=== PATIENT | female | born 1935 | race Caucasian/White ===

== ENCOUNTER 2016-09-13 12:14 | Emergency (ER) | payer MEDICARE ==
[~2016-09-13 12:14] MED LIST: AMIT25TA PO; AMLO10TA2 PO; ASPI81TA2 PO; CA C1TAB38 PO; CLON0.2T PO; COLE1TAB2 PO; GABA-585 PO; INSU100C4 SQ; LEVO75TA5 PO; LISI10TA2 PO; METF10002 PO; METO100T11 PO; NPH,100I SQ; PRAV10TA2 PO; TRAM50TA PO
--- NOTE | 2016-09-13 14:43 | RAD ---
Right tibia and fibula, 2 views, 09/13/2016: History: Hip and lower leg pain No fracture or destructive bony lesion is seen. There is minimal spurring at the knee joint. Arterial calcifications are evident. IMPRESSION: No acute abnormality is detected.
--- NOTE | 2016-09-13 14:44 | RAD ---
Pelvis with right hip, 3 views, 09/13/2016: History: Hip and lower leg pain No fracture or dislocation is identified. The hip joint spaces are minimally narrowed with mild marginal spurring. Mild degenerative changes are present in the lower lumbar spine. Scattered arterial calcifications are evident. IMPRESSION: No acute pelvic or right hip abnormality is detected.
[2016-09-13] MEDS ORDERED: HYDR-971 PO (15:08)
--- NOTE | 2016-09-13 15:14 | PHYS DOC ---
Past Medical History Past Medical History: Diabetes-Type II, High Cholesterol, Hypertension, Hypotension Past Surgical History: Cholecystectomy Alcohol Use: None Drug Use: None Adult General Chief Complaint Chief Complaint: LOWER EXT PAIN HPI HPI Patient is a 80 year old female who presents with complaint of right lower extremity pain. Patient states that she has been having pain from the lower portion of her knee down to her ankle for the past 4 days. Patient states that the pain stays in the front over her [place] bone. Patient denies any swelling to the right lower extremity or pain in her calf. Patient states that the pain has been getting progressively worse with weightbearing. Patient states that at her baseline she does not use a cane or walker, however she has had use a cane due to the pain over the past 2 days. Patient denies any recent injuries. Patient rates her pain currently as 9 out of 10 with weightbearing and 3 out of 10 with rest. Patient has been taking Tylenol at home with minimal relief in symptoms. Review of Systems Review of Systems Constitutional: Denies fever or chills [] Eyes: Denies change in visual acuity, redness, or eye pain [] HENT: Denies nasal congestion or sore throat [] Respiratory: Denies cough or shortness of breath [] Cardiovascular: No additional information not addressed in HPI [] GI: Denies abdominal pain, nausea, vomiting, bloody stools or diarrhea [] : Denies dysuria or hematuria [] Musculoskeletal: Right lower leg pain [] Integument: Denies rash or skin lesions [] Neurologic: Denies headache, focal weakness or sensory changes [] Endocrine: Denies polyuria or polydipsia [] Allergies Allergies Allergies Coded Allergies Type Severity Reaction Last Updated Verified Penicillins Allergy Unknown 12/08/13 Yes Physical Exam Physical Exam Constitutional: Well developed, well nourished, no acute distress, non-toxic appearance. [] HENT: Normocephalic, atraumatic, bilateral external ears normal, oropharynx moist, no oral exudates, nose normal. [] Eyes: PERRLA, EOMI, conjunctiva normal, no discharge. [] Neck: Normal range of motion, no tenderness, supple, no stridor. [] Cardiovascular:Heart rate regular rhythm, no murmur [] Lungs & Thorax: Bilateral breath sounds clear to auscultation [] Abdomen: Bowel sounds normal, soft, no tenderness, no masses, no pulsatile masses. [] Skin: Warm, dry, no erythema, no rash. [] Back: No tenderness, no CVA tenderness. [] Extremities: Right anterior tibial plateau tenderness to palpation, mid tibial tenderness to palpation, right greater trochanter tenderness to palpation, no cyanosis, no clubbing, ROM intact, no edema. [] Neurologic: Alert and oriented X 3, normal motor function, normal sensory function, no focal deficits noted. [] Current Patient Data Vital Signs Vital Signs Date Time Temp Pulse Resp B/P Pulse Ox O2 Delivery O2 Flow Rate FiO2 09/13/16 13:06 97.7 78 18 96 Room Air 97.7 EKG EKG Not performed [] Radiology/Procedures Radiology/Procedures [place] [id number] IMAGING REPORT Signed PATIENT: YANDEL PEREZ ACCOUNT: [id number] : 1935 LOCATION: ER AGE: 80 SEX: F EXAM STATUS: REG ER ORD. PHYSICIAN: FAY BASURTO MD REASON: right hip and right lower leg pain since last monday, no known injury PROCEDURE: TIBIA FIBULA RIGHT Right tibia and fibula, 2 views, 09/13/2016: History: Hip and lower leg pain No fracture or destructive bony lesion is seen. There is minimal spurring at the knee joint. Arterial calcifications are evident. IMPRESSION: No acute abnormality is detected. DICTATED and SIGNED BY: ANA LUISA ALFONSO MD DATE: 09/13/16 1440 CC: SUDHIR GUILLEN; FAY BASURTO MD ~ [address] [address] IMAGING REPORT Signed PATIENT: YANDEL PEREZ ACCOUNT: [id number] : 1935 LOCATION: ER AGE: 80 SEX: F EXAM STATUS: REG ER ORD. PHYSICIAN: FAY BASURTO MD REASON: right hip and right lower leg pain since last monday, no known injury PROCEDURE: HIP RIGHT 2V WITH PELVIS Pelvis with right hip, 3 views, 09/13/2016: History: Hip and lower leg pain No fracture or dislocation is identified. The hip joint spaces are minimally narrowed with mild marginal spurring. Mild degenerative changes are present in the lower lumbar spine. Scattered arterial calcifications are evident. IMPRESSION: No acute pelvic or right hip abnormality is detected. DICTATED and SIGNED BY: ANA LUISA ALFONSO MD DATE: 09/13/16 1442 CC: SUDHIR GUILLEN; FAY BASURTO MD ~ [] Course & Med Decision Making Course & Med Decision Making Pertinent Labs and Imaging studies reviewed. (See chart for details) Patient's x-rays were negative for fracture. The patient may still have either a bony contusion or possibly a stress fracture that is unseen on the x-rays. At this time I recommended limited weightbearing to the affected extremity and use of roller walker cane to assist with ambulation. The patient was provided with a prescription for hydrocodone to help with pain. I advised follow-up in 5-7 days a primary doctor and return to the emergency department for any worsening symptoms. Patient voiced understanding and in agreement with treatment plan. Dragon Disclaimer Dragon Disclaimer This electronic medical record was generated, in whole or in part, using a voice recognition dictation system. Departure Departure Impression: Primary Impression: Pain of right lower extremity Disposition: HOME, SELF-CARE Condition: IMPROVED Referrals: SUDHIR GUILLEN (PCP) Patient Instructions: Musculoskeletal Pain Additional Instructions: Follow-up with your primary doctor in the next 5-7 days. Limit weightbearing and walking on your right leg to necessary activities such as using the restroom , dressing herself, or making food. Return to the emergency department for any worsening symptoms. Scripts Hydrocodone/Apap 5-325 ([place] 5-325 Tablet)1 Each Tablet1 Tab PO Q4-6HRS PRN PAIN #20 TAB Prov:FAY BASURTO MD 09/13/16 FAY BASURTO MD Sep 13, 2016 15:14
[2016-09-13 15:21] VITALS: BP 147/68
[2016-09-13] MEDS ORDERED: HYDROCODONE/APAP 5/325MG TABLET. PO ONE (15:30)
== END 2016-09-13 15:55 | disposition home or self-care (01) ==
LOC: ER 12:14
DX: M79.604 Pain in right leg (principal); E11.9 Type 2 diabetes mellitus without complications; I10 Essential (primary) hypertension; E78.00 Pure hypercholesterolemia, unspecified; I95.9 Hypotension, unspecified; Z88.0 Allergy status to penicillin
CPT/HCPCS: 73502; 73590; 99284

== ENCOUNTER → 2016-10-03 | Outpatient (CLI) | payer MEDICARE ==
[2016-09-13 15:21] VITALS: BP 147/68
[~2016-10-03] MED LIST changes: +HYDR-971 PO
--- NOTE | 2016-10-03 12:08 | KCIC ---
PROCEDURE MR of the right knee HISTORY Acute right knee pain. Pain is anterior and extends down the leg. COMPARISON None TECHNIQUE Standard noncontrast images are obtained. FINDINGS No evidence of a medial meniscal tear. There is some signal at the anterior horn of the lateral meniscus, with surface violation compatible with a small tear. The anterior and posterior cruciate ligaments are intact. Medial collateral ligament is intact. Iliotibial band unremarkable. Fibular collateral ligament, biceps femoris tendon and popliteus tendon are intact. The extensor mechanism is intact. Small joint effusion. No evidence of an osteochondral loose body. Small joint effusion. At least moderate chondromalacia of the medial and lateral joint compartments. There is a subchondral osteophyte of the weight-bearing lateral femoral condyle Severe chondromalacia patellofemoral joint. No bone lesion. No acute fracture. Tiny Mejia cyst. IMPRESSION 1. Tear of the anterior horn of the lateral meniscus. 2. Severe primary osteoarthritis. Electronically signed by: Riley Feliz MD (Oct 03, 2016 12:07:28)
== END | disposition home or self-care (01) ==
LOC: KCIC MRI 08:09
PROVIDERS: ATTEND Physician Assistant Surgical
DX: S83.281A Other tear of lateral meniscus, current injury, right knee, initial encounter (principal); M17.11 Unilateral primary osteoarthritis, right knee; M94.261 Chondromalacia, right knee; M25.761 Osteophyte, right knee; M25.461 Effusion, right knee; X58.XXXA Exposure to other specified factors, initial encounter; Y93.89 Activity, other specified; Y92.89 Other specified places as the place of occurrence of the external cause; Y99.8 Other external cause status
CPT/HCPCS: 73721

== ENCOUNTER → 2016-12-07 | Outpatient (CLI) | payer MEDICARE ==
--- NOTE | 2016-12-07 13:03 | RAD ---
DATE: 12/07/2016 EXAM: DIGITAL SCREEN BILAT W/CAD HISTORY: Routine screening COMPARISON: 11/10/2015 This study was interpreted with the benefit of Computerized Aided Detection (CAD). FINDINGS: There are scattered fibroglandular densities in both breasts. No new or enlarging breast densities are seen. Numerous benign type calcifications are again noted. No suspicious microcalcifications have developed. IMPRESSION: Stable mammograms without evidence of malignancy. BI-RADS CATEGORY: 2 BENIGN FINDING(S) RECOMMENDED FOLLOW-UP: 12M 12 MONTH FOLLOW-UP PQRS compliance statement: Patient information was entered into a reminder system with a target due date for the next mammogram. Mammography is a sensitive method for finding small breast cancers, but it does not detect them all and is not a substitute for careful clinical examination. A negative mammogram does not negate a clinically suspicious finding and should not result in delay in biopsying a clinically suspicious abnormality. "Our facility is accredited by the [employer] Mammography Program."
== END | disposition home or self-care (01) ==
LOC: MAMMO 10:36
PROVIDERS: ATTEND Family Medicine
DX: Z12.31 Encounter for screening mammogram for malignant neoplasm of breast (principal)
CPT/HCPCS: G0202; 77067

== ENCOUNTER 2017-03-30 21:22 | Observation (INO) | payer MEDICARE ==
[~2017-03-30] VITALS: Ht 154.9 cm; Wt 65.8 kg
[~2017-03-30 21:22] MED LIST changes: +ASPI-630 PO; -ASPI81TA2 PO; +METF-620 PO; -METF10002 PO
--- NOTE | 2017-03-30 21:24 | PHYS DOC ---
Past Medical History Past Medical History: Diabetes-Type II, High Cholesterol, Hypertension, Hypotension Past Surgical History: Cholecystectomy Alcohol Use: None Drug Use: None Adult General Chief Complaint Chief Complaint: CHEST PAIN HPI HPI Patient is a 81 year old female who presents with substernal chest pain that radiates her back. She states that she was just sitting watching arose game when he came on Lasix for approximately 2 hours she did take some Tums and the pain resolved. She denies any shortness of breath nausea or diaphoresis associated with this. She states she's had this happen before but is been several months ago. She is usually followed by Dr. Olguin states she has had a stress test but is been more than 3 years ago. She currently is pain- free. She does take a baby aspirin daily. She has a family history of heart disease were all of her brothers have had heart attacks. She denies any history of smoking. She does have a history of hypertension dyslipidemia and diabetes. Review of Systems Review of Systems Constitutional: Denies fever or chills [] Eyes: Denies change in visual acuity, redness, or eye pain [] HENT: Denies nasal congestion or sore throat [] Respiratory: Denies cough or shortness of breath [] Cardiovascular: No additional information not addressed in HPI [] GI: Denies abdominal pain, nausea, vomiting, bloody stools or diarrhea [] : Denies dysuria or hematuria [] Musculoskeletal: Denies back pain or joint pain [] Integument: Denies rash or skin lesions [] Neurologic: Denies headache, focal weakness or sensory changes [] Endocrine: Denies polyuria or polydipsia [] Current Medications Current Medications Current Medications Medications (Trade) Dose Ordered Sig/[facility] Start Time Stop Time Status Last Admin Dose Admin Aspirin (Children'S Aspirin) 324 mg 1X ONCE 03/30/17 22:00 03/30/17 22:01 DC 03/30/17 21:46 324 MG Allergies Allergies Allergies Coded Allergies Type Severity Reaction Last Updated Verified Penicillins Allergy Intermediate 09/13/16 Yes Physical Exam Physical Exam Constitutional: Well developed, well nourished, no acute distress, non-toxic appearance. [] HENT: Normocephalic, atraumatic, bilateral external ears normal, oropharynx moist, no oral exudates, nose normal. [] Eyes: PERRLA, EOMI, conjunctiva normal, no discharge. [] Neck: Normal range of motion, no tenderness, supple, no stridor. [] Cardiovascular:Heart rate regular rhythm, no murmur [] Lungs & Thorax: Bilateral breath sounds clear to auscultation [] Abdomen: Bowel sounds normal, soft, no tenderness, no masses, no pulsatile masses. [] Skin: Warm, dry, no erythema, no rash. [] Back: No tenderness, no CVA tenderness. [] Extremities: No tenderness, no cyanosis, no clubbing, ROM intact, no edema. [] Neurologic: Alert and oriented X 3, normal motor function, normal sensory function, no focal deficits noted. [] Psychologic: Affect normal, judgement normal, mood normal. [] Current Patient Data Vital Signs Vital Signs Date Time Temp Pulse Resp B/P (MAP) Pulse Ox O2 Delivery O2 Flow Rate FiO2 03/30/17 21:28 97.6 63 20 186/81 (116) 96 Room Air 97.6 Lab Values Laboratory Tests Test 03/30/17 21:35 White Blood Count 10.2 x10^3/uL (4.0-11.0) Red Blood Count 4.14 x10^6/uL (3.50-5.40) Hemoglobin 10.5 g/dL (12.0-15.5) L Hematocrit 33.5 % (36.0-47.0) L Mean Corpuscular Volume 81 fL (79-100) Mean Corpuscular Hemoglobin 25 pg (25-35) Mean Corpuscular Hemoglobin Concent 31 g/dL (31-37) Red Cell Distribution Width 20.6 % (11.5-14.5) H Platelet Count 269 x10^3/uL (140-400) Neutrophils (%) (Auto) 52 % (31-73) Lymphocytes (%) (Auto) 32 % (24-48) Monocytes (%) (Auto) 11 % (0-9) H Eosinophils (%) (Auto) 4 % (0-3) H Basophils (%) (Auto) 1 % (0-3) Neutrophils # (Auto) 5.3 x10^3uL (1.8-7.7) Lymphocytes # (Auto) 3.3 x10^3/uL (1.0-4.8) Monocytes # (Auto) 1.1 x10^3/uL (0.0-1.1) Eosinophils # (Auto) 0.4 x10^3/uL (0.0-0.7) Basophils # (Auto) 0.1 x10^3/uL (0.0-0.2) Platelet Estimate Adequate (ADEQUATE) Poikilocytosis Slight Anisocytosis Slight Microcytosis Macrocytosis Ovalocytes Occ Prothrombin Time 12.6 SEC (11.7-14.0) Prothrombin Time INR 1.0 (0.8-1.1) Sodium Level 140 mmol/L (136-145) Potassium Level 4.7 mmol/L (3.5-5.1) Chloride Level 103 mmol/L (98-107) Carbon Dioxide Level 25 mmol/L (21-32) Anion Gap 12 (6-14) Blood Urea Nitrogen 40 mg/dL (7-20) H Creatinine 1.8 mg/dL (0.6-1.0) H Estimated GFR (Cockcroft-Gault) 27.0 Glucose Level 202 mg/dL (70-99) H Calcium Level 9.4 mg/dL (8.5-10.1) Magnesium Level 2.4 mg/dL (1.8-2.4) Total Bilirubin 0.2 mg/dL (0.2-1.0) Direct Bilirubin 0.1 mg/dL (0.0-0.2) Aspartate Amino Transferase (AST) 119 U/L (15-37) H Alanine Aminotransferase (ALT) 47 U/L (14-59) Alkaline Phosphatase 140 U/L (46-116) H Creatine Kinase 95 U/L (26-192) Creatine Kinase MB (Mass) 0.7 ng/mL (0.0-3.6) Creatine Kinase MB Relative Index 0.7 % (0-4) Troponin I Quantitative < 0.017 ng/mL (0.000-0.055) DY-Yps-F-Type Natriuretic Peptide 608 pg/mL (0-449) H Total Protein 8.2 g/dL (6.4-8.2) Albumin 3.5 g/dL (3.4-5.0) Lipase 251 U/L (73-393) Thyroid Stimulating Hormone (TSH) 0.392 uIU/mL (0.358-3.74) Laboratory Tests 03/30/17 21:35 Laboratory Tests 03/30/17 21:35 EKG EKG EKG shows sinus rhythm rate of [address] elevations, T-wave inversions noted in leads 3, left axis deviation, QTC 417 ms, as interpreted by me. Radiology/Procedures Radiology/Procedures View chest x-ray did not show any focal consolidations, bony abnormalities, pneumothorax, as interpreted by me. Impressions: Chest pain Dyslipidemia Diabetes Hypertension Course & Med Decision Making Course & Med Decision Making Pertinent Labs and Imaging studies reviewed. (See chart for details) EKG is nonacute, chest x-ray initial troponins are nonacute. I do not have any old labs to tell if her hemoglobin 10.5 and her creatinine 1.8 are her baseline or not. She's gotten pain currently. She is received a full dose aspirin. We'll admit to Dr. Adams, I spoke with Dr. Ba regarding admission. Patient's agreeable plans in stable condition this time with interim orders written and I did place a cardiology consultation with Dr. Wadsworth, however did not call or speak with him. Dragon Disclaimer Dragon Disclaimer This electronic medical record was generated, in whole or in part, using a voice recognition dictation system. Departure Departure Impression: Primary Impression: Chest pain Disposition: ADMITTED INPATIENT Admitting Physician: Romina Adams Condition: STABLE Referrals: SUDHIR GUILLEN (PCP) Problem Qualifiers Primary Impression: Chest pain Chest pain type: unspecified Qualified Codes: R07.9 - Chest pain, unspecified LASHONDA CORONA MD Mar 30, 2017 21:24
[2017-03-30 21:46] LABS: BASO # 0.1 x10^3/uL (0.0-0.2); BASO % 1 % (0-3); EOS % 4 % (0-3); HEMATOCRIT 33.5 % (36.0-47.0); HEMOGLOBIN 10.5 g/dL (12.0-15.5); LYMPH # 3.3 x10^3/uL (1.0-4.8); LYMPH % 32 % (24-48); MEAN CORPUSCULAR HEMOGLOBIN 25 pg (25-35); MEAN CORPUSCULAR HGB CONC 31 g/dL (31-37); MEAN CORPUSCULAR VOLUME 81 fL (79-100); MONO % 11 % (0-9); NEUT % 52 % (31-73); PLATELET COUNT 269 x10^3/uL (140-400); RED BLOOD COUNT 4.14 x10^6/uL (3.50-5.40); RED CELL DISTRIBUTION WIDTH 20.6 % (11.5-14.5); WHITE BLOOD COUNT 10.2 x10^3/uL (4.0-11.0)
[2017-03-30 21:55] LABS: PROTHROMBIN TIME PATIENT 12.6 SEC (11.7-14.0)
[2017-03-30 21:56] LABS: CALCIUM 9.4 mg/dL (8.5-10.1); CREATININE 1.8 mg/dL (0.6-1.0); POTASSIUM 4.7 mmol/L (3.5-5.1)
[2017-03-30] MEDS ORDERED: ASPIRIN CHEWABLE 81 MG TABLET. PO ONE (22:00)
[2017-03-30 22:01] LABS: ALBUMIN 3.5 g/dL (3.4-5.0); DIRECT BILIRUBIN 0.1 mg/dL (0.0-0.2); MAGNESIUM 2.4 mg/dL (1.8-2.4); TOTAL BILIRUBIN 0.2 mg/dL (0.2-1.0); TOTAL PROTEIN 8.2 g/dL (6.4-8.2)
[2017-03-30 22:09] LABS: BILIRUBIN,URINE NEGATIVE (NEG); GLUCOSE,URINE NEGATIVE (NEG); NITRITE,URINE NEGATIVE (NEG); PROTEIN,URINE NEGATIVE (NEG-TRACE); UROBILINOGEN,URINE 0.2 mg/dL (0.2 mg/dL)
[2017-03-30 22:16] LABS: CKMB MASS 0.7 ng/mL (0.0-3.6)
[2017-03-30 22:17] LABS: ANISOCYTOSIS SLIGHT; OVALOCYTES OCC; PLT ESTIMATE ADEQUATE (ADEQUATE); POIKILOCYTOSIS SLIGHT
[2017-03-30] MEDS ORDERED: MORPHINE SULFATE 2 MG/ML DISP.SYRIN. IV PRN (22:30)
[2017-03-30] MEDS ORDERED: ONDANSETRON PF 4 MG/2 ML VIAL. IV PRN (22:30)
[2017-03-30] MEDS ORDERED: NITROGLYCERIN SUBLINGUAL 0.4 MG BOTTLE OF 25. SL PRN (22:30)
[2017-03-30 22:32] LABS: BACTERIA,URINE FEW /HPF (0-FEW); RBC,URINE 0 /HPF (0-2); SQUAMOUS EPITHELIAL CELL,UR FEW /LPF
[2017-03-30 23:41] VITALS: BP 170/64
[2017-03-31 03:09] VITALS: BP 139/66
[2017-03-31 04:52] LABS: BASO # 0.1 x10^3/uL (0.0-0.2); BASO % 1 % (0-3); EOS % 5 % (0-3); HEMOGLOBIN 9.1 g/dL (12.0-15.5); LYMPH # 2.6 x10^3/uL (1.0-4.8); LYMPH % 29 % (24-48); MEAN CORPUSCULAR HEMOGLOBIN 25 pg (25-35); MEAN CORPUSCULAR HGB CONC 32 g/dL (31-37); MEAN CORPUSCULAR VOLUME 81 fL (79-100); MONO % 11 % (0-9); NEUT % 54 % (31-73); PLATELET COUNT 237 x10^3/uL (140-400); RED CELL DISTRIBUTION WIDTH 20.1 % (11.5-14.5); WHITE BLOOD COUNT 8.8 x10^3/uL (4.0-11.0)
--- NOTE | 2017-03-31 04:53 | EKG ---
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
[2017-03-31 05:37] LABS: CREATININE 1.6 mg/dL (0.6-1.0); GFR 30.9
[2017-03-31 07:00] VITALS: BP 165/67
--- NOTE | 2017-03-31 08:32 | RAD ---
Indication chest pain. A single view of the chest was obtained and is compared to an examination 08/31/2009. Mild cardiomegaly is noted. There is no congestive heart failure. There is no focal infiltrate. Significant pleural fluid is not seen. There is no pneumothorax. There has not, overall, been a substantial change when compared to the previous exam. IMPRESSION: Stable mild cardiomegaly. No acute finding. No significant change
[2017-03-31] MEDS ORDERED: DEXTROSE 50% 25 GM / 50ML DISP.SYRIN. IV PRN (09:30)
[2017-03-31] MEDS ORDERED: traMADol 50 MG TABLET PO PRN (09:30)
[2017-03-31] MEDS ORDERED: HYDROcodone/APAP 5/325MG 1 TAB TABLET PO PRN (09:30)
--- NOTE | 2017-03-31 09:31 | PDOC2 ---
CARDIAC CONSULT DATE OF CONSULT Date of Consult DATE: 03/31/17 TIME: 09:27 REASON FOR CONSULT Reason for Consult: Chest pain REFERRING PHYSICIAN Referring Physician: Dr. Mathew SOURCE Source: Chart review, Patient HISTORY OF PRESENT ILLNESS HISTORY OF PRESENT ILLNESS This is an 81 yo female who presented with complaints of chest pain. Patient reports she was sitting relaxing in her recliner yesterday afternoon and developed pain in her lower chest/mid-epigastric region. Describes as stabbing in nature. Radiated under bilateral breast. Associated with pain across he central back. Worsened with deep breath. Took Tums with improvement. Pain last approximately 1.5 hrs and resolved prior to arrival to ED. Denies any associated dizziness, palpitations, diaphoresis, SOA, CHAIDEZ, or nausea/vomiting. Does have a history of hypertension and hyperlipidemia. Follows with Dr. Olguin with [facility]. Last stress test or echo over 2 years ago. Reports compliance with medications. PAST MEDICAL HISTORY Cardiovascular: HTN, Hyperlipidemia Pulmonary: No pertinent hx CENTRAL NERVOUS SYSTEM: Other (no pertinent hx) GI: GERD Heme/Onc: No pertinent hx Hepatobiliary: No pertinent hx Psych: No pertinent hx Musculoskeletal: Osteoarthritis Rheumatologic: No pertinent hx Infectious disease: No pertinent hx ENT: No pertinent hx Renal/: Chronic renal insuff Endocrine: Diabetes Dermatology: No pertinent hx PAST SURGICAL HISTORY Past Surgical History: Cholecystectomy FAMILY HISTORY Family History: Coronary Artery Disease (brothers ), Diabetes (mother ) SOCIAL HISTORY Smoke: No ALCOHOL: none Lives: with Family CURRENT MEDICATIONS CURRENT MEDICATIONS Current Medications Medications (Trade) Dose Ordered Sig/Stephen Route PRN Reason Start Time Stop Time Status Last Admin Dose Admin Aspirin (Children'S Aspirin) 324 mg 1X ONCE PO 03/30/17 22:00 03/30/17 22:01 DC 03/30/17 21:46 ALLERGIES ALLERGIES: Coded Allergies: Penicillins (Verified Allergy, Intermediate, 09/13/16) ROS Review of System 14 point ROS conducted with pertinent positives noted above in HPI. PHYSICAL EXAM General: Alert, Oriented X3, Cooperative, No acute distress HEENT: Atraumatic, Mucous membr. moist/pink Lungs: Clear to auscultation, Normal air movement Heart: Regular rate, Normal S1, Normal S2, No murmurs Abdomen: Soft, No tenderness Extremities: Other (trace edema of RLE) Skin: No breakdown, No significant lesion Neuro: Normal speech, Sensation intact Psych/Mental Status: Mental status NL, Mood NL MUSCULOSKELETAL: Osteoarthritic changes both hands VITALS VITALS Vital Signs Date Time Temp Pulse Resp B/P (MAP) Pulse Ox O2 Delivery O2 Flow Rate FiO2 03/31/17 07:00 98.2 64 18 165/67 (99) 98 Room Air 98.2 LABS Lab: Laboratory Tests Test 03/30/17 21:35 03/30/17 22:00 03/31/17 04:35 03/31/17 07:16 White Blood Count 10.2 x10^3/uL (4.0-11.0) 8.8 x10^3/uL (4.0-11.0) Red Blood Count 4.14 x10^6/uL (3.50-5.40) 3.60 x10^6/uL (3.50-5.40) Hemoglobin 10.5 g/dL (12.0-15.5) 9.1 g/dL (12.0-15.5) Hematocrit 33.5 % (36.0-47.0) 29.0 % (36.0-47.0) Mean Corpuscular Volume 81 fL (79-100) 81 fL (79-100) Mean Corpuscular Hemoglobin 25 pg (25-35) 25 pg (25-35) Mean Corpuscular Hemoglobin Concent 31 g/dL (31-37) 32 g/dL (31-37) Red Cell Distribution Width 20.6 % (11.5-14.5) 20.1 % (11.5-14.5) Platelet Count 269 x10^3/uL (140-400) 237 x10^3/uL (140-400) Neutrophils (%) (Auto) 52 % (31-73) 54 % (31-73) Lymphocytes (%) (Auto) 32 % (24-48) 29 % (24-48) Monocytes (%) (Auto) 11 % (0-9) 11 % (0-9) Eosinophils (%) (Auto) 4 % (0-3) 5 % (0-3) Basophils (%) (Auto) 1 % (0-3) 1 % (0-3) Neutrophils # (Auto) 5.3 x10^3uL (1.8-7.7) 4.7 x10^3uL (1.8-7.7) Lymphocytes # (Auto) 3.3 x10^3/uL (1.0-4.8) 2.6 x10^3/uL (1.0-4.8) Monocytes # (Auto) 1.1 x10^3/uL (0.0-1.1) 1.0 x10^3/uL (0.0-1.1) Eosinophils # (Auto) 0.4 x10^3/uL (0.0-0.7) 0.4 x10^3/uL (0.0-0.7) Basophils # (Auto) 0.1 x10^3/uL (0.0-0.2) 0.1 x10^3/uL (0.0-0.2) Platelet Estimate Adequate (ADEQUATE) Poikilocytosis Slight Anisocytosis Slight Microcytosis Macrocytosis Ovalocytes Occ Prothrombin Time 12.6 SEC (11.7-14.0) Prothromb Time International Ratio 1.0 (0.8-1.1) Sodium Level 140 mmol/L (136-145) 143 mmol/L (136-145) Potassium Level 4.7 mmol/L (3.5-5.1) 5.0 mmol/L (3.5-5.1) Chloride Level 103 mmol/L (98-107) 108 mmol/L (98-107) Carbon Dioxide Level 25 mmol/L (21-32) 26 mmol/L (21-32) Anion Gap 12 (6-14) 9 (6-14) Blood Urea Nitrogen 40 mg/dL (7-20) 37 mg/dL (7-20) Creatinine 1.8 mg/dL (0.6-1.0) 1.6 mg/dL (0.6-1.0) Estimated GFR (Cockcroft-Gault) 27.0 30.9 Glucose Level 202 mg/dL (70-99) 155 mg/dL (70-99) Calcium Level 9.4 mg/dL (8.5-10.1) 9.0 mg/dL (8.5-10.1) Magnesium Level 2.4 mg/dL (1.8-2.4) Total Bilirubin 0.2 mg/dL (0.2-1.0) Direct Bilirubin 0.1 mg/dL (0.0-0.2) Aspartate Amino Transf (AST/SGOT) 119 U/L (15-37) Alanine Aminotransferase (ALT/SGPT) 47 U/L (14-59) Alkaline Phosphatase 140 U/L (46-116) Creatine Kinase 95 U/L (26-192) Creatine Kinase MB (Mass) 0.7 ng/mL (0.0-3.6) Creatine Kinase MB Relative Index 0.7 % (0-4) Troponin I Quantitative < 0.017 ng/mL (0.000-0.055) < 0.017 ng/mL (0.000-0.055) AJ-Mtg-Z-Type Natriuretic Peptide 608 pg/mL (0-449) Total Protein 8.2 g/dL (6.4-8.2) Albumin 3.5 g/dL (3.4-5.0) Lipase 251 U/L (73-393) Thyroid Stimulating Hormone (TSH) 0.392 uIU/mL (0.358-3.74) Urine Collection Type Unknown Urine Color Yellow Urine Clarity Clear Urine pH 6.0 Urine Specific [place] 1.010 Urine Protein Negative mg/dL (NEG-TRACE) Urine Glucose (UA) Negative mg/dL (NEG) Urine Ketones (Stick) Negative mg/dL (NEG) Urine Blood Negative (NEG) Urine Nitrite Negative (NEG) Urine Bilirubin Negative (NEG) Urine Urobilinogen Dipstick 0.2 mg/dL (0.2 mg/dL) Urine Leukocyte Esterase Small (NEG) Urine RBC 0 /HPF (0-2) Urine WBC 11-20 /HPF (0-4) Urine Squamous Epithelial Cells Few /LPF Urine Bacteria Few /HPF (0-FEW) Urine Mucus Slight /LPF Glucose (Fingerstick) 108 mg/dL (70-99) ASSESSMENT/PLAN ASSESSMENT/PLAN 1. Chest pain, atypical; trop negative x2. EKG without significant acute changes. AMI ruled out. 2. Hypertension; labile. resume home antiHTN therapy 3. Hyperlipidemia; statin therapy 4. Diabetes; controlled 5. CKD 3 Recommendations Continue to trend troponin Check lipids Check echo to assess LV function Given symptomatology and risk factors/strong family history of CAD, will proceed with MPI to r/o ischemia Resume ASA, statin, ATIF, and BB (following MPI). If MPI negative, may discharge from a CV perspective and follow up with primary hairspring studder, Dr. Olguin. Problems: MUKESH GALLOWAY APRN Mar 31, 2017 09:31
--- NOTE | 2017-03-31 09:34 | PDOC1 ---
HISTORY AND PHYSICAL Chief Complaint Chief Complaint This is 81 year old female ,pt of Dr Ferreira has been admitted with a chief complaint ofs with substernal chest pain that radiates her back. She states that she was just sitting watching arose game when he came on Lasix for approximately 2 hours she did take some Tums and the pain resolved. She denies any shortness of breath nausea or diaphoresis associated with this. She states she's had this happen before but is been several months ago. She is usually followed by Dr. Olguin states she has had a stress test but is been more than 3 years ago. She currently is pain-free. She does take a baby aspirin daily. She has a family history of heart disease were all of her brothers have had heart attacks. She denies any history of smoking. She does have a history of hypertension dyslipidemia and diabetes. No elevation of cardiac enzymes or EKG changes . Problems: Past Medical History Cardiovascular: HTN GI: GERD Endocrine: Diabetes, Hypothyroidism Past Surgical History Past Surgical History: Cholecystectomy Past Family History Family History: Diabetes, Heart Disease Past Social History PSH no smoking or alcohol Review of Symptoms Review of Symptoms General ROS: positive for heart burn and pain going to back Psychological ROS: negative Ophthalmic ROS: negative ENT ROS: negative Allergy and Immunology ROS: negative Hematology and Lymphatic: negative Endocrine ROS: negative Respiratory ROS: no cold, cough, dyspnea. Cardiovascular ROS: no chest pain or dyspnea on exertion Gastrointestinal ROS: no abdominal pain, change in bowel habits, or black or bloody stools Genito-Urinary ROS: no dysuria, trouble voiding, or hematuria Musculoskeletal ROS: no pain Neurological ROS: negative Dermatological ROS: no rash Medications Current Medications Aspirin (Children'S Aspirin) 324 mg 1X ONCE PO Last administered on 03/30/17t 21:46; Start 03/30/17 at 22:00; Stop 03/30/17 at 22:01; Status DC Morphine Sulfate 2 mg PRN Q2HR PRN IV SEVERE PAIN; Start 03/30/17 at 22:30; Stop 03/31/17 at 22:29 Nitroglycerin (Nitrostat) 0.4 mg PRN Q5MIN PRN SL CHEST PAIN; Start 03/30/17 at 22:30; Stop 03/31/17 at 22:29 Ondansetron HCl (Zofran) 4 mg PRN Q8HRS PRN IV NAUSEA/VOMITING; Start 03/30/17 at 22:30; Stop 03/31/17 at 22:29 Allergy Allergies Coded Allergies Type Severity Reaction Last Updated Verified Penicillins Allergy Intermediate 09/13/16 Yes Physical Exam Physical Exam General appearance - alert,well appearing, and in no distress and oriented to person, place, and time Mental Status - alert, oriented to person, place, and time, affect appropriate to mood Head - normal Chest - clear to auscultation, no wheezes, rales or rhonchi, symmetric air entry Heart - S1 and S2 normal Abdomen - soft, nontender, nondistended, no masses or organomegaly Neurological - alert and oriented Musculoskeletal - no muscular tenderness noted Extremities - no pedal edema Skin - warm and dry Labs Laboratory Tests Test 03/30/17 21:35 03/30/17 22:00 03/31/17 04:35 03/31/17 07:16 White Blood Count 10.2 x10^3/uL (4.0-11.0) 8.8 x10^3/uL (4.0-11.0) Red Blood Count 4.14 x10^6/uL (3.50-5.40) 3.60 x10^6/uL (3.50-5.40) Hemoglobin 10.5 g/dL (12.0-15.5) 9.1 g/dL (12.0-15.5) Hematocrit 33.5 % (36.0-47.0) 29.0 % (36.0-47.0) Mean Corpuscular Volume 81 fL (79-100) 81 fL (79-100) Mean Corpuscular Hemoglobin 25 pg (25-35) 25 pg (25-35) Mean Corpuscular Hemoglobin Concent 31 g/dL (31-37) 32 g/dL (31-37) Red Cell Distribution Width 20.6 % (11.5-14.5) 20.1 % (11.5-14.5) Platelet Count 269 x10^3/uL (140-400) 237 x10^3/uL (140-400) Neutrophils (%) (Auto) 52 % (31-73) 54 % (31-73) Lymphocytes (%) (Auto) 32 % (24-48) 29 % (24-48) Monocytes (%) (Auto) 11 % (0-9) 11 % (0-9) Eosinophils (%) (Auto) 4 % (0-3) 5 % (0-3) Basophils (%) (Auto) 1 % (0-3) 1 % (0-3) Neutrophils # (Auto) 5.3 x10^3uL (1.8-7.7) 4.7 x10^3uL (1.8-7.7) Lymphocytes # (Auto) 3.3 x10^3/uL (1.0-4.8) 2.6 x10^3/uL (1.0-4.8) Monocytes # (Auto) 1.1 x10^3/uL (0.0-1.1) 1.0 x10^3/uL (0.0-1.1) Eosinophils # (Auto) 0.4 x10^3/uL (0.0-0.7) 0.4 x10^3/uL (0.0-0.7) Basophils # (Auto) 0.1 x10^3/uL (0.0-0.2) 0.1 x10^3/uL (0.0-0.2) Platelet Estimate Adequate (ADEQUATE) Poikilocytosis Slight Anisocytosis Slight Microcytosis Macrocytosis Ovalocytes Occ Prothrombin Time 12.6 SEC (11.7-14.0) Prothromb Time International Ratio 1.0 (0.8-1.1) Sodium Level 140 mmol/L (136-145) 143 mmol/L (136-145) Potassium Level 4.7 mmol/L (3.5-5.1) 5.0 mmol/L (3.5-5.1) Chloride Level 103 mmol/L (98-107) 108 mmol/L (98-107) Carbon Dioxide Level 25 mmol/L (21-32) 26 mmol/L (21-32) Anion Gap 12 (6-14) 9 (6-14) Blood Urea Nitrogen 40 mg/dL (7-20) 37 mg/dL (7-20) Creatinine 1.8 mg/dL (0.6-1.0) 1.6 mg/dL (0.6-1.0) Estimated GFR (Cockcroft-Gault) 27.0 30.9 Glucose Level 202 mg/dL (70-99) 155 mg/dL (70-99) Calcium Level 9.4 mg/dL (8.5-10.1) 9.0 mg/dL (8.5-10.1) Magnesium Level 2.4 mg/dL (1.8-2.4) Total Bilirubin 0.2 mg/dL (0.2-1.0) Direct Bilirubin 0.1 mg/dL (0.0-0.2) Aspartate Amino Transf (AST/SGOT) 119 U/L (15-37) Alanine Aminotransferase (ALT/SGPT) 47 U/L (14-59) Alkaline Phosphatase 140 U/L (46-116) Creatine Kinase 95 U/L (26-192) Creatine Kinase MB (Mass) 0.7 ng/mL (0.0-3.6) Creatine Kinase MB Relative Index 0.7 % (0-4) Troponin I Quantitative < 0.017 ng/mL (0.000-0.055) < 0.017 ng/mL (0.000-0.055) ZV-Ozu-M-Type Natriuretic Peptide 608 pg/mL (0-449) Total Protein 8.2 g/dL (6.4-8.2) Albumin 3.5 g/dL (3.4-5.0) Lipase 251 U/L (73-393) Thyroid Stimulating Hormone (TSH) 0.392 uIU/mL (0.358-3.74) Urine Collection Type Unknown Urine Color Yellow Urine Clarity Clear Urine pH 6.0 Urine Specific [place] 1.010 Urine Protein Negative mg/dL (NEG-TRACE) Urine Glucose (UA) Negative mg/dL (NEG) Urine Ketones (Stick) Negative mg/dL (NEG) Urine Blood Negative (NEG) Urine Nitrite Negative (NEG) Urine Bilirubin Negative (NEG) Urine Urobilinogen Dipstick 0.2 mg/dL (0.2 mg/dL) Urine Leukocyte Esterase Small (NEG) Urine RBC 0 /HPF (0-2) Urine WBC 11-20 /HPF (0-4) Urine Squamous Epithelial Cells Few /LPF Urine Bacteria Few /HPF (0-FEW) Urine Mucus Slight /LPF Glucose (Fingerstick) 108 mg/dL (70-99) Laboratory Tests Test 03/30/17 21:35 03/30/17 22:00 03/31/17 04:35 03/31/17 07:16 White Blood Count 10.2 x10^3/uL (4.0-11.0) 8.8 x10^3/uL (4.0-11.0) Red Blood Count 4.14 x10^6/uL (3.50-5.40) 3.60 x10^6/uL (3.50-5.40) Hemoglobin 10.5 g/dL (12.0-15.5) 9.1 g/dL (12.0-15.5) Hematocrit 33.5 % (36.0-47.0) 29.0 % (36.0-47.0) Mean Corpuscular Volume 81 fL (79-100) 81 fL (79-100) Mean Corpuscular Hemoglobin 25 pg (25-35) 25 pg (25-35) Mean Corpuscular Hemoglobin Concent 31 g/dL (31-37) 32 g/dL (31-37) Red Cell Distribution Width 20.6 % (11.5-14.5) 20.1 % (11.5-14.5) Platelet Count 269 x10^3/uL (140-400) 237 x10^3/uL (140-400) Neutrophils (%) (Auto) 52 % (31-73) 54 % (31-73) Lymphocytes (%) (Auto) 32 % (24-48) 29 % (24-48) Monocytes (%) (Auto) 11 % (0-9) 11 % (0-9) Eosinophils (%) (Auto) 4 % (0-3) 5 % (0-3) Basophils (%) (Auto) 1 % (0-3) 1 % (0-3) Neutrophils # (Auto) 5.3 x10^3uL (1.8-7.7) 4.7 x10^3uL (1.8-7.7) Lymphocytes # (Auto) 3.3 x10^3/uL (1.0-4.8) 2.6 x10^3/uL (1.0-4.8) Monocytes # (Auto) 1.1 x10^3/uL (0.0-1.1) 1.0 x10^3/uL (0.0-1.1) Eosinophils # (Auto) 0.4 x10^3/uL (0.0-0.7) 0.4 x10^3/uL (0.0-0.7) Basophils # (Auto) 0.1 x10^3/uL (0.0-0.2) 0.1 x10^3/uL (0.0-0.2) Platelet Estimate Adequate (ADEQUATE) Poikilocytosis Slight Anisocytosis Slight Microcytosis Macrocytosis Ovalocytes Occ Prothrombin Time 12.6 SEC (11.7-14.0) Prothromb Time International Ratio 1.0 (0.8-1.1) Sodium Level 140 mmol/L (136-145) 143 mmol/L (136-145) Potassium Level 4.7 mmol/L (3.5-5.1) 5.0 mmol/L (3.5-5.1) Chloride Level 103 mmol/L (98-107) 108 mmol/L (98-107) Carbon Dioxide Level 25 mmol/L (21-32) 26 mmol/L (21-32) Anion Gap 12 (6-14) 9 (6-14) Blood Urea Nitrogen 40 mg/dL (7-20) 37 mg/dL (7-20) Creatinine 1.8 mg/dL (0.6-1.0) 1.6 mg/dL (0.6-1.0) Estimated GFR (Cockcroft-Gault) 27.0 30.9 Glucose Level 202 mg/dL (70-99) 155 mg/dL (70-99) Calcium Level 9.4 mg/dL (8.5-10.1) 9.0 mg/dL (8.5-10.1) Magnesium Level 2.4 mg/dL (1.8-2.4) Total Bilirubin 0.2 mg/dL (0.2-1.0) Direct Bilirubin 0.1 mg/dL (0.0-0.2) Aspartate Amino Transf (AST/SGOT) 119 U/L (15-37) Alanine Aminotransferase (ALT/SGPT) 47 U/L (14-59) Alkaline Phosphatase 140 U/L (46-116) Creatine Kinase 95 U/L (26-192) Creatine Kinase MB (Mass) 0.7 ng/mL (0.0-3.6) Creatine Kinase MB Relative Index 0.7 % (0-4) Troponin I Quantitative < 0.017 ng/mL (0.000-0.055) < 0.017 ng/mL (0.000-0.055) ZZ-Nyt-K-Type Natriuretic Peptide 608 pg/mL (0-449) Total Protein 8.2 g/dL (6.4-8.2) Albumin 3.5 g/dL (3.4-5.0) Lipase 251 U/L (73-393) Thyroid Stimulating Hormone (TSH) 0.392 uIU/mL (0.358-3.74) Urine Collection Type Unknown Urine Color Yellow Urine Clarity Clear Urine pH 6.0 Urine Specific [place] 1.010 Urine Protein Negative mg/dL (NEG-TRACE) Urine Glucose (UA) Negative mg/dL (NEG) Urine Ketones (Stick) Negative mg/dL (NEG) Urine Blood Negative (NEG) Urine Nitrite Negative (NEG) Urine Bilirubin Negative (NEG) Urine Urobilinogen Dipstick 0.2 mg/dL (0.2 mg/dL) Urine Leukocyte Esterase Small (NEG) Urine RBC 0 /HPF (0-2) Urine WBC 11-20 /HPF (0-4) Urine Squamous Epithelial Cells Few /LPF Urine Bacteria Few /HPF (0-FEW) Urine Mucus Slight /LPF Glucose (Fingerstick) 108 mg/dL (70-99) Vitals Vital Signs Date Time Temp Pulse Resp B/P (MAP) Pulse Ox O2 Delivery O2 Flow Rate FiO2 03/31/17 07:00 98.2 64 18 165/67 (99) 98 Room Air 98.2 VTE Prophylaxis VTE Prophylaxis Devices: Yes VTE Pharmacological Prophylaxi: No Assessment Assessment chest pain for cardiac evaluation GERD htn Dm hypothyroidism Plan Plan serial enzymes ekg cxr -ve cardiology consult echo/stress test home today if above neg For more details regarding further plans, please refer to the orders. JESSICA DOE MD Mar 31, 2017 09:34
[2017-03-31] MEDS ORDERED: IV NORMAL SALINE 1000ML BAG 1,000 ML IV SCH (09:45)
[2017-03-31] MEDS ORDERED: METOPROLOL SUCC 24HR ER 100 MG TAB.ER.24H. PO SCH (10:00)
[2017-03-31] MEDS ORDERED: LISINOPRIL 10 MG TABLET PO SCH (10:00)
[2017-03-31] MEDS ORDERED: cloNIDine HCL 0.2 MG TABLET PO SCH (10:00)
[2017-03-31] MEDS ORDERED: amLODIPine BESYLATE 10 MG TABLET PO SCH (10:00)
[2017-03-31] MEDS ORDERED: LEVOTHYROXINE 75 MCG TABLET PO SCH (10:00)
[2017-03-31 10:10] LABS: CHOLESTEROL/HDL RATIO 3.5
[2017-03-31] MEDS ORDERED: REGADENOSON 0.4 MG/5 ML DISP.SYRIN. IV ONE (10:15)
[2017-03-31 11:52] VITALS: BP 167/62
[2017-03-31] MEDS: INSULIN ASPART 300 UNITS/3 ML INSULN.PEN SQ SCH ×2 (12:00→17:20)
[2017-03-31] MEDS: COLESTIPOL HCL 1 GM TABLET PO SCH ×2 (12:11→17:10)
[2017-03-31] MEDS ORDERED: GABAPENTIN 100 MG CAPSULE. PO SCH (14:00)
--- NOTE | 2017-03-31 14:05 | RAD ---
APPROVED REPORT Test Type: Pharmacological Stress Nurse/Tech: Khalida Zee R.N. Test Indications: chest pain Cardiac History: Family history, Hypertension, Diabetes Medications: See Electronic Medical Record Medical History: See Electronic Medical Record Resting ECG: NSR with freq. PAC's Resting Heart Rate: 89 bpm Resting Blood Pressure: 189/81mmHg Pretest Chest Pain: No chest pain Nurse/Tech Notes S1S2, lungs sound clear Consent: The procedure was explained to the patient in lay terms. Informed consent was witnessed. Andrae eout was entered into [employer]. History and Stress Test performed by Khalida Zee R.N. Pharm. Details Pharmacologic stress testing was performed using 0.4mg per 5ml of regadenoson given intravenously ove r 7-10 seconds. Stress Symptoms Dyspnea POST EXERCISE Reason for Termination: Infusion complete Max HR: 112 bpm Max Blood Pressure: 177/69mmHg Blood Pressure response to exercise: Normal blood pressure response during stress. Chest Pain: No. Arrhythmia: No. no changes ST Change: No. INTERPRETATION Stress EKG Conclusion: The resting EKG shows a sinus rhythm with nonspecific ST-T wave changes. The stress EKG shows no significant changes from baseline. No EKG evidence of stress-induced ischemia. Imaging Protocol IMAGE PROTOCOL: Rest Tc-99m/stress Tc-99m 1 day Rest: Stress: Viability: Radiopharm.Tc99m DyycavxsdNu48x Sestamibi Dose10.9mCi 35.1mCi Duration 15min. 10min. Img Date 03/31/2017 03/31/2017 Inj-Img [id number]. 60min. Rest Admin Site:IV - Left AntecubitalAdministrator:SOSA Vasquez Stress Admin Site: IV - Left AntecubitalAdministrator: SOSA Vasquez STRESS DATA End Diast. Vol.60.0mlAv. Heart Rate88.0bpm End Syst. Vol.8.0mlCO Index BSA0.0L/min Myocardial Pwdo566.0gEject. Sklvccds99.0% Stress Rates Pk. Fill Rate3.28EDV/secLVtime Pk. Fill 174.86msec Pk. Empty Rate4.68ESV/secLVtime Pk. Tzoaf900.98msec 1/3 Pk. Fill1.60EDV/sec Stress Scores Regional WT2.00Summed WT9.00 Regional WM0.00Summed WM0.00 LV Perfusion The stress scans showed no significant defects. The rest scans showed no significant defects. Nuclear imaging shows no reversible ischemia or infarct. Wall Motion Left ventricular systolic function is normal with an ejection fraction of greater than 70%. LV Perf. Quant 17 Seg. SSS7.00 17 Seg. SRS12.00 17 Seg. SDS0.00 Stress Defect Extent (% LAD)0.00Rest Defect Extent (% LAD)0.60Rev. Defect Extent (% LAD)0.00 Stress Defect Extent (% LCX) 42.50Rest Defect Extent (% LCX)45.00Rev. Defect Extent (% LCX)0.00 Stress Defect Extent (% RCA)0.00Rest Defect Extent (% RCA)36.70Rev. Defect Extent (% RCA)0.00 Stress Defect Extent (% DANTE)9.80Rest Defect Extent (% DANTE)24.10Rev. Defect Extent (% DANTE)0.00 Conclusion 1. No EKG evidence of stress-induced ischemia. 2. Nuclear imaging shows no reversible ischemia or infarct. 3. Good LV systolic function with an ejection fraction of greater than 70%. 4. Low risk Lexiscan nuclear stress test.
--- NOTE | 2017-03-31 14:46 | CARD ---
APPROVED REPORT EXAM: Two-dimensional and M-mode echocardiogram with Doppler and color Doppler. Other Information Quality : Good INDICATION Chest Pain 2D DIMENSIONS RVDd2.7 (2.9-3.5cm)Left Atrium(2D)3.8 (1.6-4.0cm) IVSd1.2 (0.7-1.1cm)Aortic Root(2D)2.8 (2.0-3.7cm) LVDd4.6 (3.9-5.9cm)LVOT Diameter2.0 (1.8-2.4cm) PWd1.1 (0.7-1.1cm)LVDs3.3 (2.5-4.0cm) FS (%) 28.4 %SV54.1 ml LVEF(%)54.9 (>50%) Aortic Valve AoV Peak Rl.153.2cm/sAoV VTI33.0cm AO Peak GR.9.4mmHgLVOT Peak Rl.111.7cm/s LVOT VTI 25.48cmAO Mean GR.5mmHg TIMOTHY (VMAX)2.40xj0TQP (VTI)2.52cm2 Mitral Valve MV E Xriuphvv59.3cm/sMV DECEL VERX852hm MV A Prvjfidu251.6cm/sMV HLA48da E/A Ratio0.7MVA (PHT)3.39cm2 TDI E/Lateral E'9.8E/Medial E'14.9 Tricuspid Valve TR P. Vohtnjlc198pt/sRAP JEHGLDQN8taOw TR Peak Gr.01ulQbRMKL30raZb Pulmonary Vein S1 Cloqbczi49.7cm/sD2 Ortfoune37.8cm/s PVa npszwxyy609sdin LEFT VENTRICLE The left ventricle is normal size. There is mild concentric left ventricular hypertrophy. The left ve ntricular systolic function is normal. The Ejection Fraction is 55-60%. There is normal LV segmental wall motion. Transmitral Doppler flow pattern is Grade I-abnormal relaxation pattern. RIGHT VENTRICLE The right ventricle is normal size. The right ventricular systolic function is normal. ATRIA The left atrium size is normal. The right atrium size is normal. The interatrial septum is intact wit h no evidence for an atrial septal defect or patent foramen ovale as noted on 2-D or Doppler imaging. AORTIC VALVE The aortic valve is calcified but opens well. Doppler and Color Flow revealed trace aortic regurgitat ion. There is no significant aortic valvular stenosis. MITRAL VALVE The mitral valve is normal in structure and function. There is no evidence of mitral valve prolapse. There is no mitral valve stenosis. Doppler and Color-flow revealed trace mitral regurgitation. TRICUSPID VALVE The tricuspid valve is normal in structure and function. Doppler and Color Flow revealed trace tricus pid regurgitation. The PA pressure was estimated at 31 mmHg. There is no tricuspid valve stenosis. PULMONIC VALVE The pulmonary valve is normal in structure and function. Doppler and Color Flow revealed no pulmonic valvular regurgitation. There is no pulmonic valvular stenosis. GREAT VESSELS The aortic root is normal in size. The ascending aorta is normal in size. The IVC is normal in size a nd collapses >50% with inspiration. PERICARDIAL EFFUSION There is a trace anterior pericardial effusion. Critical Notification Critical Value: No <Conclusion> The left ventricular systolic function is normal. The Ejection Fraction is 55-60%. There is normal LV segmental wall motion. Transmitral Doppler flow pattern is Grade I-abnormal relaxation pattern. Trace aortic regurgitation. Trace mitral regurgitation. Trace tricuspid regurgitation. The PA pressure was estimated at 31 mmHg. There is a trace anterior pericardial effusion.
[2017-03-31 15:07] VITALS: BP 163/53
[2017-03-31 16:38] LABS: ALBUMIN 3.3 g/dL (3.4-5.0); CALCIUM 9.1 mg/dL (8.5-10.1); CREATININE 1.6 mg/dL (0.6-1.0); GFR 30.9; PHOSPHORUS 4.8 mg/dL (2.6-4.7); POTASSIUM 4.5 mmol/L (3.5-5.1)
[2017-03-31] MEDS ORDERED: ATORVASTATIN CALCIUM 10 MG TABLET. PO SCH (21:00)
[2017-03-31] MEDS ORDERED: AMITRIPTYLINE HCL 25 MG TABLET. PO SCH (21:00)
[2017-04-01] MEDS ORDERED: ASPIRIN CHEWABLE 81 MG TABLET. PO SCH (09:00)
== END 2017-03-31 19:00 | disposition home or self-care (01) ==
LOC: ER 21:22 → 5 SOUTH 22:36
PROVIDERS: ADMIT Internal Medicine; ATTEND Internal Medicine
DX: R07.89 Other chest pain (principal); K21.9 Gastro-esophageal reflux disease without esophagitis; E11.22 Type 2 diabetes mellitus with diabetic chronic kidney disease; I12.9 Hypertensive chronic kidney disease with stage 1 through stage 4 chronic kidney disease, or unspecified chronic kidney disease; N18.3 Chronic kidney disease, stage 3 (moderate); E78.5 Hyperlipidemia, unspecified; E03.9 Hypothyroidism, unspecified; E78.00 Pure hypercholesterolemia, unspecified; M19.90 Unspecified osteoarthritis, unspecified site; Z83.3 Family history of diabetes mellitus; Z82.49 Family history of ischemic heart disease and other diseases of the circulatory system
CPT/HCPCS: 36415; 71010; 78452; 80048; 80061; 80069; 80076; 81001; 82553; 82962; 83036; 83690; 83735; 83880; 84443; 84484; 85007; 85027; 85610; 87086; 93005; 93017; 93306; 96360; 96361; 96372; 99285; A9500; G0378; J1815; J2785; J7030; 87186; 96374; 96375; 96376; G0379; A6539

== ENCOUNTER 2017-07-30 09:20 | Emergency (ER) | payer MEDICARE ==
[~2017-07-30] VITALS: Ht 152.4 cm; Wt 66.2 kg
[~2017-07-30 09:20] MED LIST changes: +METO-247 PO; -METO100T11 PO
[2017-07-30 10:02] VITALS: BP 171/80
[2017-07-30 10:53] LABS: BILIRUBIN,URINE NEGATIVE (NEG); GLUCOSE,URINE NEGATIVE (NEG); NITRITE,URINE POSITIVE (NEG); PROTEIN,URINE NEGATIVE (NEG-TRACE); UROBILINOGEN,URINE 0.2 mg/dL (0.2 mg/dL)
--- NOTE | 2017-07-30 11:11 | PHYS DOC ---
Past Medical History Past Medical History: Diabetes-Type II, High Cholesterol, Hypertension Past Surgical History: Cholecystectomy Alcohol Use: None Drug Use: None Adult General Chief Complaint Chief Complaint: BACK PAIN - NO INJURY [facility] HPI Patient is a 81 year old female presents to the emergency department stating she is having upper back pain and discomfort. She states that the back pain radiates down to her lower back area on bilateral sides. Patient states that she believes that her shingles that is causing her to have pain and discomfort. She states that sharp aching pain. Patient also states that she is having pain underneath her left breast. She states that this is not uncommon for her to have pain under the breast area however this is a different type of pain. She states the pain is pretty constant that started yesterday. She denies any rashes or any type of drainage or trauma to the site. Patient states that she had seen her primary care physician for her back pain and discomfort and was told that it was more muscle-type ache and pain. Patient presents today stating that she is concerned that she may have shingles. Review of Systems Review of Systems Constitutional: Denies fever or chills [] Eyes: Denies change in visual acuity, redness, or eye pain [] HENT: Denies nasal congestion or sore throat [] Respiratory: Denies cough or shortness of breath [] Cardiovascular: No additional information not addressed in HPI [] GI: Denies abdominal pain, nausea, vomiting, bloody stools or diarrhea [] : Denies dysuria or hematuria [] Musculoskeletal: Upper back pain or joint pain [] Integument: Denies rash or skin lesions. Patient with pain to the left rest area Neurologic: Denies headache, focal weakness or sensory changes [] Endocrine: Denies polyuria or polydipsia [] All other systems were reviewed and found to be within normal limits, except as documented in this note. Allergies Allergies Allergies Coded Allergies Type Severity Reaction Last Updated Verified Penicillins Allergy Intermediate 09/13/16 Yes Physical Exam Physical Exam Constitutional: Well developed, well nourished, no acute distress, non-toxic appearance. [] HENT: Normocephalic, atraumatic, bilateral external ears normal, oropharynx moist, no oral exudates, nose normal. [] Eyes: PERRLA, EOMI, conjunctiva normal, no discharge. [] Neck: Normal range of motion, no tenderness, supple, no stridor. [] Cardiovascular:Heart rate regular rhythm, no murmur [] Lungs & Thorax: Bilateral breath sounds clear to auscultation. Tenderness noted to the area under the left breast. Skin: Warm, dry, no erythema, no rash. [] Back: Generalized back tenderness, no CVA tenderness. [] Extremities: No tenderness, no cyanosis, no clubbing, ROM intact, no edema. [] Neurologic: Alert and oriented X 3, normal motor function, normal sensory function, no focal deficits noted. [] Psychologic: Affect normal, judgement normal, mood normal. [] Current Patient Data Vital Signs Vital Signs Date Time Temp Pulse Resp B/P (MAP) Pulse Ox O2 Delivery O2 Flow Rate FiO2 07/30/17 10:02 98.0 66 18 95 Room Air 98.0 Lab Values Laboratory Tests Test 07/30/17 10:15 Urine Collection Type Unknown Urine Color Yellow Urine Clarity Clear Urine pH 6.0 Urine Specific [place] 1.015 Urine Protein Negative mg/dL (NEG-TRACE) Urine Glucose (UA) Negative mg/dL (NEG) Urine Ketones (Stick) Negative mg/dL (NEG) Urine Blood Negative (NEG) Urine Nitrite Positive (NEG) Urine Bilirubin Negative (NEG) Urine Urobilinogen Dipstick 0.2 mg/dL (0.2 mg/dL) Urine Leukocyte Esterase Small (NEG) Urine RBC 0 /HPF (0-2) Urine WBC 1-4 /HPF (0-4) Urine Squamous Epithelial Cells Few /LPF Urine Bacteria Many /HPF (0-FEW) EKG EKG [] Radiology/Procedures Radiology/Procedures [] Course & Med Decision Making Course & Med Decision Making Pertinent Labs and Imaging studies reviewed. (See chart for details) Patient will be placed on acyclovir discharge. Urine was positive for urinary tract infection. Positive for leukocyte Estrace positive for nitrates. Patient will be placed on Macrobid for the urinary tract infection with recommendations for plenty of fluids such as water and cranberry juice. Recommended her to avoid cranberry juice cocktail, carbonate beverages, citrus fruits, alcohol, and caffeine as is her considered irritants to the bladder. Patient was instructed to follow-up with her primary care physician in the next 7-10 days. Signs and symptoms to return back to emergency department has been provided. [I've spoken with the patient and/or caregivers. I've explained the patient's condition, diagnosis and treatment plan based on information available to me at this time. I've answered the patient's and/or caregivers questions and addressed any concerns. The patient and/or caregivers have a good understanding the patient's diagnosis, condition and treatment plan as can be expected at this point. Vital signs have been stabilized. The patient's condition is stable for discharge from the emergency department. The patient will pursue further outpatient evaluation with her primary care provider or other designated consulting physician as outlined in the discharge instructions. Patient and/or caregivers are agreeable to this plan of care and follow-up instructions have been explained in detail. The patient and/or caregivers have received these instructions in written format and expressed understanding of these discharge instructions. The patient and her caregivers are aware that if any significant change in condition or worsening of symptoms should prompt him to immediately return to this of the closest emergency department. If an emergent department is not readily available I would encourage him to call 911. ] Huion Disclaimer Dragon Disclaimer This electronic medical record was generated, in whole or in part, using a voice recognition dictation system. Departure Departure Impression: Primary Impression: UTI (urinary tract infection) Additional Impression: Shingles Disposition: HOME, SELF-CARE Condition: STABLE Referrals: SUDHIR GUILLEN (PCP) Patient Instructions: Shingles, Scqw-be-Ieaw, Urinary Tract Infection, Easy-to- Read Additional Instructions: Activity as tolerated. Drink plenty of fluids such as water and cranberry juice. Avoid cranberry juice cocktail, carbonate beverages, citrus fruits, and now causes considered irritants to the bladder. Medication as prescribed. Follow-up through primary care physician X7 to 10 days. Return back to the emergency department for signs and symptoms become worse. Scripts Nitrofurantoin Monohyd/M-Cryst (MACROBID 100 MG CAPSULE) 100 Mg Capsule 1 CAP PO BID, #14 CAP Prov: MARIA G PERLA APRN 07/30/17 Acyclovir (ACYCLOVIR) 800 Mg Tablet 1 TAB PO 5XDAY, #50 TAB Prov: MARIA G PERLA APRN 07/30/17 Problem Qualifiers Primary Impression: UTI (urinary tract infection) Urinary tract infection type: site unspecified Hematuria presence: without hematuria Qualified Codes: N39.0 - Urinary tract infection, site not specified Additional Impression: Shingles Herpes zoster complications: without complications Qualified Codes: B02.9 - Zoster without complications MARIA G PERLA JET DYEING MACHINE OPERATOR Jul 30, 2017 11:11
[2017-07-30 11:12] LABS: BACTERIA,URINE MANY /HPF (0-FEW); RBC,URINE 0 /HPF (0-2); SQUAMOUS EPITHELIAL CELL,UR FEW /LPF
[2017-07-30] MEDS ORDERED: NITR100C62 PO (11:21)
[2017-07-30] MEDS ORDERED: ACYC800T PO (11:21)
[2017-07-30] MEDS ORDERED: HYDROcodone/APAP 5/325MG 1 TAB TABLET PO ONE (11:30)
[2017-08-11] MEDS ORDERED: CIPR500T94 PO (15:51)
== END 2017-07-30 11:44 | disposition home or self-care (01) ==
LOC: ER 09:20
DX: N39.0 Urinary tract infection, site not specified (principal); B02.9 Zoster without complications; E11.9 Type 2 diabetes mellitus without complications; E78.00 Pure hypercholesterolemia, unspecified; I10 Essential (primary) hypertension; Z88.0 Allergy status to penicillin; Z90.49 Acquired absence of other specified parts of digestive tract
CPT/HCPCS: 81001; 87086; 87186; 99284

== ENCOUNTER → 2017-12-05 | Outpatient (CLI) | payer MEDICARE | END | disposition home or self-care (01) | LOC: KCIC DEXA 12:37 | DX: E11.9 Type 2 diabetes mellitus without complications (principal); E05.90 Thyrotoxicosis, unspecified without thyrotoxic crisis or storm; N28.9 Disorder of kidney and ureter, unspecified; Z78.0 Asymptomatic menopausal state | CPT/HCPCS: 77080 ==

== ENCOUNTER → 2017-12-11 | Outpatient (CLI) | payer MEDICARE | END | disposition home or self-care (01) | LOC: MAMMO 12:14 | DX: Z12.31 Encounter for screening mammogram for malignant neoplasm of breast (principal) | CPT/HCPCS: 77067 ==

== ENCOUNTER → 2018-12-13 | Outpatient (CLI) | payer MEDICARE ==
[2018-05-01 15:45] VITALS: BP 138/69
[~2018-12-13] MED LIST changes: +ACYC800T PO; -AMLO10TA2 PO; +AMLO10TA8 PO; +CIPR500T94 PO; +HYDR-3164 PO; -HYDR-971 PO; -METF-620 PO; +METF10007 PO; +NITR100C62 PO
--- NOTE | 2018-12-14 10:03 | RAD ---
DATE: 12/13/2018 EXAM: MAMMO KANWAL SCREENING BILATERAL HISTORY: Routine screening COMPARISON: 12/11/2017 This study was interpreted with the benefit of Computerized Aided Detection (CAD). Breast Density: HETERO The breast parenchyma is heterogenously dense, which could reduce sensitivity of mammography. Breast parenchyma level C. FINDINGS: 2-D and 3-D tomosynthesis imaging was performed in CC and MLO projections. The fibroglandular tissues are quite heterogeneous. There is mild architectural distortion related to a small density laterally in the right breast. This appears to be unchanged since multiple previous studies. No new or enlarging breast densities are seen. Numerous benign type calcifications are again noted. IMPRESSION: Stable mammograms without evidence of malignancy. BI-RADS CATEGORY: 2 BENIGN FINDING(S) RECOMMENDED FOLLOW-UP: 12M 12 MONTH FOLLOW-UP PQRS compliance statement: Patient information was entered into a reminder system with a target due date for the next mammogram. Mammography is a sensitive method for finding small breast cancers, but it does not detect them all and is not a substitute for careful clinical examination. A negative mammogram does not negate a clinically suspicious finding and should not result in delay in biopsying a clinically suspicious abnormality. "Our facility is accredited by the [employer] Mammography [employer]."
== END | disposition home or self-care (01) ==
LOC: MAMMO 12:35
PROVIDERS: ATTEND Family Medicine
DX: Z12.31 Encounter for screening mammogram for malignant neoplasm of breast (principal)
CPT/HCPCS: 77063; 77067

== ENCOUNTER → 2020-02-26 | Outpatient (CLI) | payer MEDICARE ==
[2018-05-01 15:45] VITALS: BP 138/69
--- NOTE | 2020-02-27 10:06 | RAD ---
DATE: 02/26/2020 11:07 AM EXAM: MAMMO KANWAL SCREENING BILATERAL HISTORY: Screening. Patient is 84 years old and denies a history of previous breast biopsy, or diagnosis of malignancy or high-risk lesions in the breast. COMPARISON: 12/13/2018, 12/11/2017. Bilateral CC and MLO views of the breasts were performed. Bilateral breast tomosynthesis was performed in CC and MLO projections. Computer-aided detection was utilized. FINDINGS: Breast Density: HETERO The breast parenchyma Is heterogeneously dense, which could reduce sensitivity of mammography. Breast parenchyma level C In the middle third upper outer quadrant right breast at the approximate 9:30 o'clock position 8 cm from the nipple is a 2.7 cm focal asymmetry with associated distortion and coarse heterogeneous calcifications near its posterior margin that needs additional imaging evaluation with a full-field 3-D lateral view, and targeted right breast ultrasound. On the tomographic image series, it is best visualized on image 30 of 52 on the CC series, and on image 32 of 64 on the MLO series. At the superior posterior left breast, approximate 12:00 position 13 cm from the nipple, an asymmetry with associated architectural distortion needs additional imaging with a full-field lateral view, exaggerated CC lateral view and targeted left breast ultrasound. Rolled views might be helpful as well. This is best visualized superiorly on the MLO view on image 43 of 64 and the associated distortion is best visualized on image 29 of 55 on the CC tomographic series although it overlaps with the retroglandular fat and is not as well seen on cc projection. IMPRESSION: Bilateral breast focal asymmetry, findings for which additional imaging is advised. BI-RADS CATEGORY: 0 INCOMPLETE: NEEDS ADDITIONAL IMAGING EVALUATION AND/OR PRIOR MAMMOGRAMS FOR COMPARISON. RECOMMENDED FOLLOW-UP: ADD ADDITIONAL IMAGING The patient will be contacted to return for additional imaging and a supplemental report will follow. PQRS compliance statement: Patient information was entered into a reminder system with a target due date for the next mammogram. Mammography is a sensitive method for finding small breast cancers, but it does not detect them all and is not a substitute for careful clinical examination. A negative mammogram does not negate a clinically suspicious finding and should not result in delay in biopsying a clinically suspicious abnormality. "Our facility is accredited by the [employer] Mammography [employer]."
== END ==
LOC: MAMMO 10:31
PROVIDERS: ATTEND Family Medicine
DX: Z12.31 Encounter for screening mammogram for malignant neoplasm of breast (principal)
CPT/HCPCS: 77063; 77067

== ENCOUNTER → 2020-03-10 | Outpatient (CLI) | payer MEDICARE ==
[2018-05-01 15:45] VITALS: BP 138/69
--- NOTE | 2020-03-10 17:30 | RAD ---
CHEST PA LATERAL Clinical indications: Screening study for interstitial lung disease. COMPARISON: April 30, 2018. Findings: No acute lung infiltrate or pleural effusion or pulmonary edema or lung mass or pneumothorax is seen. Cardiomegaly is evident. The heart size, pulmonary vasculature, mediastinum and both genesis are stable. The osseous structures appear intact. Impression: No acute radiographic abnormality is seen. Electronically signed by: Wilfred Jasmine MD (03/10/2020 5:27 PM) [id number]
--- NOTE | 2020-03-11 16:17 | RAD ---
EXAMINATION: DIGITAL DIAGNOSTIC BILATERAL, BREAST BILATERAL History: Reason: ABNORMAL MAMMOGRAM / Spl. Instructions: / History: Comparison: 10/08/2012, 09/20/2011, 09/16/2010, 10/15/2013, 10/16/2014, 11/10/2015, 12/07/2016, 12/11/2017, 12/13/2018, 02/26/2020 mammograms. Technique: Bilateral digital diagnostic mammogram views were obtained. CAD was utilized. 3-D tomosynthesis images were acquired. Findings: Breast Tissue Density B : There are scattered areas of fibroglandular density. The distortion involving the right upper outer breast appears similar and correlation with prior exams. It persists on spot compression imaging. Distortion involving the left upper breast also similar on prior exams. Limited ultrasound imaging of the right upper outer breast and axilla as well as the left upper inner breast and axilla was performed. No masses or cysts identified. No suspicious axillary lymph nodes.. IMPRESSION: No mammographic evidence of malignancy. Recommend routine screening. No suspicious interval changes are suspected upon correlation multiple previous exams. No masses involving the sites of interest on ultrasound exam either. BI-RADS category 1: Negative. The images were reviewed with computer aided detection. Patient information is entered into the reminder system with a target due date for the next screening mammogram. Mammography is the most sensitive method for finding small breast cancers, but it does not detect them all and is not a substitute for careful clinical examination. A negative mammogram does not negate a clinically suspicious finding and should not result in delay in biopsying a clinically suspicious abnormality. "Our facility is accredited by the [employer] Mammography Program." Electronically signed by: Zackery Stratton MD (03/11/2020 4:14 PM) [facility]
== END | disposition home or self-care (01) ==
LOC: MAMMO 10:23
PROVIDERS: ATTEND Family Medicine
DX: R92.2 Inconclusive mammogram (principal); I51.7 Cardiomegaly
CPT/HCPCS: 71046; 77066; 76641-50

== ENCOUNTER → 2021-07-08 | Outpatient (CLI) | payer MEDICARE ==
[2018-05-01 15:45] VITALS: BP 138/69
[~2021-07-08] MED LIST changes: -ACYC800T PO; +ACYC800T88 PO; +AMLO-187 PO; -AMLO10TA8 PO; +LISI10TA16 PO; -LISI10TA2 PO
--- NOTE | 2021-07-08 11:27 | RAD ---
EXAM: Renal sonogram. HISTORY: Renal failure. TECHNIQUE: Sonographic imaging of the kidneys and bladder was performed. COMPARISON: None. FINDINGS: The kidneys are normal in size. There is no hydronephrosis. There is renal cortical thinnin g. There is echogenic renal parenchyma. There are simple renal cysts measuring 2.7 cm on the right an d 2.8 cm on the left. There is no hydronephrosis. The prevoid bladder volume is 59 cc. The left urete ral jet is not seen during the exam. The right ureteral jet is unremarkable. IMPRESSION: 1. Echogenic renal parenchyma, a finding which can be seen with medical renal disease. 2. Bilateral renal cortical thinning. 3. Simple renal cysts. Follow-up is not routinely performed for simple cysts. Electronically signed by: Tracy Prabhakar MD (07/08/2021 11:24 AM) [id number]
[2021-07-08 11:48] LABS: CALCIUM 8.6 mg/dL (8.5-10.1); CREATININE 1.8 mg/dL (0.6-1.0); GFR 26.7; POTASSIUM 4.4 mmol/L (3.5-5.1)
== END ==
LOC: US 11:13
PROVIDERS: ATTEND Internal Medicine
DX: N28.1 Cyst of kidney, acquired (principal); N19 Unspecified kidney failure
CPT/HCPCS: 36415; 76770; 80048

== ENCOUNTER 2021-10-09 19:29 | Emergency (ER) | payer MEDICARE ==
[~2021-10-09] VITALS: Ht 152.4 cm; Wt 70.0 kg
[2021-10-09 21:06] VITALS: BP 168/50
--- NOTE | 2021-10-09 21:37 | PHYS DOC ---
Past Medical History Past Medical History: Diabetes-Type II, High Cholesterol, Hypertension, Other Additional Past Medical Histor: SHINGLES Past Surgical History: Cholecystectomy, Other Additional Past Surgical Histo: moles off back Smoking Status: Never Smoker Alcohol Use: None Drug Use: None General Adult EDM: Chief Complaint: SWALLOWED FORIEGN BODY HPI: HPI: Patient is a 85 year old female presents with a chief complaint of sore throat and foreign body sensation in her throat. 1830 hrs. patient was eating meatba lls when she suddenly felt as if she had an esophageal food bolus obstruction. Patient felt discomfort in her left throat but was able to swallow. Patient did not have any issues breathing or handling her oral secretions. At the time my exam patient states she feels better. She feels as if the foreign body sensation has resolved. Patient does complain of some throat irritation or sensation of swelling. Patient tolerated p.o. without issue. Review of Systems: Review of Systems: Constitutional: Denies fever or chills. [] Eyes: Denies change in visual acuity. [] HENT: Denies nasal congestion or sore throat. [] Respiratory: Denies cough or shortness of breath. [] Cardiovascular: Denies chest pain or edema. [] GI: Denies abdominal pain, nausea, vomiting, bloody stools or diarrhea. [] : Denies dysuria. [] Musculoskeletal: Denies back pain or joint pain. [] Integument: Denies rash. [] Neurologic: Denies headache, focal weakness or sensory changes. [] Endocrine: Denies polyuria or polydipsia. [] Lymphatic: Denies swollen glands. [] Psychiatric: Denies depression or anxiety. [] Heart Score: C/O Chest Pain: N/A Risk Factors: Risk Factors: DM, Current or recent (<one month) smoker, HTN, HLP, family history of CAD, obesity. Risk Scores: Score 0 - 3: 2.5% MACE over next 6 weeks - Discharge Home Score 4 - 6: 20.3% MACE over next 6 weeks - Admit for Clinical Observation Score 7 - 10: 72.7% MACE over next 6 weeks - Early Invasive Strategies Allergies: Allergies: Allergies Coded Allergies Type Severity Reaction Last Updated Verified Penicillins Allergy Intermediate 10/09/21 Yes Physical Exam: PE: Constitutional: Well developed, well nourished, no acute distress, non-toxic appearance. [] HENT: Normocephalic, atraumatic, bilateral external ears normal, oropharynx moist, no oral exudates, nose normal. [] Eyes: PERRLA, EOMI, conjunctiva normal, no discharge. [] Neck: Normal range of motion, no tenderness, supple, no stridor. [] Cardiovascular:Heart rate regular rhythm, no murmur [] Lungs & Thorax: Bilateral breath sounds clear to auscultation [] Abdomen: Bowel sounds normal, soft, no tenderness, no masses, no pulsatile masses. [] Skin: Warm, dry, no erythema, no rash. [] Back: No tenderness, no CVA tenderness. [] Extremities: No tenderness, no cyanosis, no clubbing, ROM intact, no edema. [] Neurologic: Alert and oriented X 3, normal motor function, normal sensory function, no focal deficits noted. [] Psychologic: Affect normal, judgement normal, mood normal. [] Current Patient Data: Vital Signs: Vital Signs Date Time Temp Pulse Resp B/P (MAP) Pulse Ox O2 Delivery O2 Flow Rate FiO2 10/09/21 21:06 64 18 168/50 (89) 94 Room Air 10/09/21 19:36 97.7 97.7 EKG: EKG: [] Radiology/Procedures: Radiology/Procedures: [] Course & Med Decision Making: Course & Med Decision Making Pertinent Labs and Imaging studies reviewed. (See chart for details) [] Dragon Disclaimer: Dragon Disclaimer: This electronic medical record was generated, in whole or in part, using a voice recognition dictation system. Departure Departure Impression: Primary Impression: Sore throat Additional Impression: Esophageal foreign body Disposition: HOME / SELF CARE / HOMELESS Condition: STABLE Referrals: JESSICA DOE MD (PCP) Patient Instructions: Swallowed Foreign Body, Adult LLOYD HENRY I DO Oct 09, 2021 21:37
== END 2021-10-09 21:43 | disposition home or self-care (01) ==
LOC: ER 19:29
DX: R09.89 Other specified symptoms and signs involving the circulatory and respiratory systems (principal); E11.9 Type 2 diabetes mellitus without complications; E78.00 Pure hypercholesterolemia, unspecified; I10 Essential (primary) hypertension; Z88.0 Allergy status to penicillin
CPT/HCPCS: 99281

== ENCOUNTER → 2021-10-21 | Outpatient (CLI) | payer MEDICARE ==
[2021-10-09 21:06] VITALS: BP 168/50
--- NOTE | 2021-10-21 11:04 | RAD ---
EXAM: Bilateral digital diagnostic mammogram with tomosynthesis; bilateral breast sonogram. HISTORY: 85-year-old female presents with bilateral breast irritation. The patient reports the irrita tion involving the skin along the inferior aspect of both breasts. TECHNIQUE: Full-field digital craniocaudal and mediolateral oblique 2D and 3D tomosynthesis images of both breasts are obtained for evaluation. Computer aided detection was applied. Sonographic imaging of both breasts targeted to sites of mammographic findings was performed. COMPARISON: Sonogram and mammogram dated 03/10/2020, and mammograms dated 02/26/2020, 12/13/2018, 8, 12/07/2016, 11/10/2015, 10/16/2014, 10/15/2013. BREAST PARENCHYMAL DENSITY: Level B - Scattered fibroglandular densities. FINDINGS: There is architectural distortion within the 9:00 position of the right breast at mid depth which is not appreciably changed compared to tomosynthesis images dated 12/13/2018. The nearly 3 year course of stability and absence of a suspicious sonographic correlate and this location favors benign ity. There is stable asymmetry in this location on studies dating to 10/15/2013. There are additional areas of asymmetry and nodularity within both breasts which are stable in appear ance. There are multiple scattered and clustered benign-appearing microcalcifications. No convincing suspicious microcalcifications is seen. Sonographic imaging of the right breast demonstrates a hypoechoic focus with posterior shadowing mavis uring 5 mm at the 9:00 position 5 cm from the nipple. This likely corresponds with a coarse calcifica tion dislocation demonstrated mammographically. There is no blood flow within this location to sugges t neoplasm. There is no convincing abnormal finding within the 9:00 position at mid depth correspondi ng with the region of mammographic distortion. There are benign axillary lymph nodes. Sonographic imaging of the left breast demonstrates a 6 mm hypoechoic lesion at the 12:00 subareolar location, the appearance of which favors a benign fibrocystic or fibroadenomatoid lesion. There is a 5 mm similar-appearing suspected complicated cystic or fibroadenomatoid lesion at the 11:00 position 4 cm the nipple. There are benign axillary lymph nodes. IMPRESSION: 1. Persistent asymmetry with distortion within the 9:00 position of the right breast compared to mult iple studies dating to 10/15/2013. The long-term stability and absence of a suspicious sonographic [place] elate favors benignity. 2. Small suspected benign fibrocystic or fibroadenomatoid lesions within the 12:00 and 1:00 positions of the left breast. 3. BI-RADS Category 3: Probably benign finding(s). Short term follow up with a right breast diagnosti c mammogram and bilateral breast sonogram in 6 months is recommended. There is increased conspicuity of the mammographic finding within the 9:00 position of the right breast and no sonographic correlate at the time of follow-up, 3D stereotactic biopsy can be considered for definitive diagnosis. If your mammogram demonstrates that you have dense breast tissue, which could hide abnormalities, and if you have other risk factors for breast cancer that have been identified, you might benefit from s upplemental screening tests that may be suggested by your ordering physician. Dense breast tissue, i n and of itself, is a relatively common condition. This information is not provided to cause undue c oncern, but rather to raise your awareness and to promote discussion with your physician regarding th e presence of other risk factors, in addition to dense breast tissue. A report of your mammography re sults will be sent to you and your physician. You should contact your physician if you have any ques tions or concerns regarding this report. Mammography is a sensitive method for finding small breast cancers, but it does not detect them all a nd is not a substitute for careful clinical examination. A negative mammogram does not negate a clin ically suspicious finding and should not result in delay in biopsying a clinically suspicious abnorma lity. PQRS compliance statement - Patient information was entered into a reminder system with a target due date for the next mammogram. "Our facility is accredited by the [employer] Mammography [employer]." Electronically signed by: Tracy Prabhakar MD (10/21/2021 11:01 AM) [id number]
== END ==
LOC: MAMMO 09:26
PROVIDERS: ATTEND Internal Medicine
DX: Z01.818 Encounter for other preprocedural examination (principal); M67.441 Ganglion, right hand; I73.00 Raynaud's syndrome without gangrene
CPT/HCPCS: 76641; 77066; G0279; 77062